=== PATIENT | female | born 1995 | race Caucasian/White ===

== ENCOUNTER 2021-07-03 00:26 | Inpatient (IN) | payer OTHER, SELFPAY ==
[~2021-07-03] VITALS: Ht 162.6 cm; Wt 54.4 kg
[2021-07-03] MEDS ORDERED: LR 1,000 ML IV SCH (01:15)
[2021-07-03] MEDS ORDERED: LR 1,000 ML IV ONE (01:15)
[2021-07-03] MEDS ORDERED: NALBUPHINE HCL 10 MG/ML AMP IVP PRN (01:15)
[2021-07-03] MEDS ORDERED: OXYTOCIN/0.9 % SODIUM CHLORIDE 1,000 ML IV SCH ×2 (01:15→15:30)
[2021-07-03] MEDS ORDERED: DINOPROSTONE 10 MG SUPP VG ONE (01:15)
[2021-07-03] MEDS ORDERED: TERBUTALINE SULFATE 1 MG/ML VIAL SUBCUT PRN (01:15)
[2021-07-03] MEDS ORDERED: LR 500 ML IV ONE (01:15)
[2021-07-03] MEDS ORDERED: NALBUPHINE HCL 10 MG/ML AMP ONE ×2 (05:06→13:21)
[2021-07-03 07:33] LABS: WHITE BLOOD COUNT (AUTO) 6.3 K/uL (4.8-10.8)
[2021-07-03 07:34] LABS: HEMATOCRIT 35.1 % (36-48); HEMOGLOBIN 11.6 g/dL (12.0-16.0); MEAN CORPUSCULAR HEMOGLOBIN 27 pg (27-31); MEAN CORPUSCULAR HGB CONC 33 % (32-36); MEAN CORPUSCULAR VOLUME 81 fL (79.0-98.0); PLATELET COUNT (AUTO) 215 K/uL (130-430); RED CELL DISTRIBUTION WIDTH 14.8 % (9.0-15.0)
[2021-07-03 07:35] LABS: BASOPHILS # (AUTO) 0.3 K/uL (0.0-0.2); BASOPHILS % (AUTO) 4.8 % (0.0-2.0); EOSINOPHILS # (AUTO) 0.1 K/uL (0.0-0.4); EOSINOPHILS % (AUTO) 1.3 % (0.0-4.0); LYMPHOCYTES # (AUTO) 1.7 K/uL (1.0-5.5); LYMPHOCYTES % (AUTO) 26.8 % (20.5-51.5); MONOCYTES # (AUTO) 0.6 K/uL (0.0-1.0); MONOCYTES % (AUTO) 9.7 % (1.7-9.3); NEUTROPHILS # (AUTO) 3.6 K/uL (1.8-7.7); NEUTROPHILS % (AUTO) 57.4 % (40.0-70.0)
[2021-07-03] MEDS ORDERED: AMPICILLIN SODIUM 2 GM in NS 100 ML IV ONE (09:15)
[2021-07-03 10:38] VITALS: BP_SYST 110
[2021-07-03] MEDS ORDERED: AMPICILLIN SODIUM 1 GM in NS 50 ML IV SCH ×2 (13:30→15:00)
[2021-07-03] MEDS ORDERED: LANOLIN 7 GM OINT. TP PRN (15:30)
[2021-07-03] MEDS ORDERED: DERMOPLAST SPRAY TP PRN (15:30)
[2021-07-03] MEDS ORDERED: ANUSOL 1 EA SUPP.RECT (PREPARATION H) RC PRN (15:30)
[2021-07-03] MEDS ORDERED: HYDROCORTISONE 0.5% CREAM 28.4 GM CREAM.GM. TP PRN (15:30)
[2021-07-03] MEDS ORDERED: METHYLERGONOVINE MALEATE 0.2 MG TABLET PO PRN (15:30)
[2021-07-03] MEDS ORDERED: WITCH HAZEL LEAF 1 MED.PAD MED.PAD TP PRN (15:30)
[2021-07-03] MEDS ORDERED: OXYTOCIN/0.9 % SODIUM CHLORIDE 1,000 ML IV ONE (15:30)
[2021-07-03] MEDS ORDERED: IBUPROFEN 600 MG TABLET PO ONE (16:00)
[2021-07-03] MEDS ORDERED: DOCUSATE SODIUM 100 MG CAPSULE PO ONE (16:00)
[2021-07-03] MEDS ORDERED: TEMAZEPAM 15 MG CAPSULE PO PRN (21:00)
[2021-07-03] MEDS: SENNOSIDES/DOCUSATE SODIUM 1 TAB TABLET(SENOKOT-S) PO SCH (21:22)
[2021-07-04] MEDS: IBUPROFEN 600 MG TABLET PO SCH ×4 (00:10→18:04)
[2021-07-04 07:42] LABS: HEMATOCRIT 31.5 % (36-48); HEMOGLOBIN 10.6 g/dL (12.0-16.0)
[2021-07-04] MEDS ORDERED: LIDOCAINE PF 1% 30ML(POUR BTL) INJ ONE (08:08)
[2021-07-04] MEDS ORDERED: MINERAL OIL 30 ML UDC ONE (08:08)
[2021-07-04] MEDS ORDERED: DINOPROSTONE 10 MG SUPP VG ONE (08:11)
[2021-07-04] MEDS ORDERED: DOCUSATE SODIUM 100 MG CAPSULE PO SCH (09:00)
[2021-07-04] MEDS: SENNOSIDES/DOCUSATE SODIUM 1 TAB TABLET(SENOKOT-S) PO SCH (20:28)
[2021-07-05] MEDS: IBUPROFEN 600 MG TABLET PO SCH ×2 (00:17→06:08)
== END 2021-07-05 10:45 | disposition home or self-care (01) | DRG 560 ==
LOC: SPU 00:39
PROVIDERS: ADMIT Obstetrics & Gynecology; ATTEND Obstetrics & Gynecology
PROC: 10E0XZZ Delivery of Products of Conception, External Approach (ICD-10-PCS; principal; 2021-07-03)
PROC: 3E0P7VZ Introduction of Hormone into Female Reproductive, Via Natural or Artificial Opening (ICD-10-PCS; 2021-07-03)
DX: O99.824 Streptococcus B carrier state complicating childbirth (principal); Z37.0 Single live birth; D62 Acute posthemorrhagic anemia; Z20.822 Contact with and (suspected) exposure to COVID-19; Z3A.39 39 weeks gestation of pregnancy; O99.02 Anemia complicating childbirth
CPT/HCPCS: 36415; 81002; 85018; 85025; 86592; 86886; 86900; 86901; J0290; J2001; J2300; J2590